=== PATIENT | male | born 1940 | race Caucasian/White ===

== ENCOUNTER → 2018-02-04 07:55 | Outpatient (CLI) | payer MEDICARE, SELFPAY ==
[2018-02-04 09:24] LABS: Cholesterol 233 mg/dL (140-199); HDL Cholesterol 66 mg/dL (40-60); LDL Cholesterol Calculated 152 mg/dL (<100); Triglycerides 77 mg/dL (35-150)
== END ==
PROVIDERS: Family Provider Internal Medicine; PCP Internal Medicine; Visit Provider Internal Medicine
DX: E78.5 Hyperlipidemia, unspecified (principal)
CPT/HCPCS: 36415; 80061

== ENCOUNTER → 2018-05-13 08:12 | Outpatient (CLI) | payer MEDICARE, SELFPAY ==
[2018-05-13 09:09] LABS: Alanine Aminotransferase 26 IU/L (21-72); Albumin 4.2 g/dL (3.5-5.0); Albumin Globulin Ratio 1.4 (1.0-2.8); Alkaline Phosphatase 86 U/L (38-126); Aspartate Aminotransferase 20 IU/L (17-59); BUN Creatinine Ratio 17.3 (6-22); Bilirubin Total 0.5 mg/dL (0.2-1.3); Blood Urea Nitrogen 19 mg/dL (9-20); Calcium 9.3 mg/dL (8.4-10.2); Carbon Dioxide 28 mmol/L (22-32); Chloride 105 mmol/L (98-107); Cholesterol 173 mg/dL (140-199); Estimated Glomerular Filt Rate > 60.0 mL/min (>60); Globulin 2.9 g/dL (1.7-4.1); Glucose 112 mg/dL (80-110); HDL Cholesterol 58 mg/dL (40-60); HEMOLYSIS < 15 (0-50); LDL Cholesterol Calculated 100 mg/dL (<100); Potassium 4.3 mmol/L (3.4-5.1); Sodium 142 mmol/L (137-145); Total Protein 7.1 g/dL (6.3-8.2); Triglycerides 73 mg/dL (35-150); Uric Acid 7.7 mg/dL (3.5-8.5)
== END ==
PROVIDERS: PCP Internal Medicine; Visit Provider Internal Medicine
DX: E78.5 Hyperlipidemia, unspecified (principal); I10 Essential (primary) hypertension
CPT/HCPCS: 36415; 80053; 80061; 84550

== ENCOUNTER → 2020-06-29 15:11 | Outpatient (CLI) | payer MEDICARE, SELFPAY ==
--- NOTE | 2020-06-29 15:13 | DI.RAD.S_ITS ---
PROCEDURE: XR CHEST 2V INDICATIONS: cough TECHNIQUE: 2 views of the chest were acquired. COMPARISON: [facility], , CHEST 2 VIEW, 03/30/2015, 12:25. FINDINGS: Surgical changes and devices: None. Lungs and pleura: Lungs are clear. No pleural effusions or pneumothorax. Mediastinum: Mediastinal contours are normal. Heart size is normal. Bones and chest wall: No suspicious bony abnormalities. Soft tissues appear unremarkable. IMPRESSION: No source of cough is found. Dictated by: Charles Valerio M.D. on 06/29/2020 at 15:51 Approved by: Charles Valerio M.D. on 06/29/2020 at 15:55
== END ==
PROVIDERS: Family Provider Internal Medicine; PCP Internal Medicine; Referring Provider Internal Medicine; Visit Provider Internal Medicine
DX: R05 Cough (principal)
CPT/HCPCS: 71046

== ENCOUNTER → 2020-07-01 12:58 | Outpatient (CLI) | payer MEDICARE, SELFPAY ==
[2020-07-01 14:17] LABS: Alanine Aminotransferase 20 IU/L (<50); Albumin 4.3 g/dL (3.5-5.0); Albumin Globulin Ratio 1.5 (1.0-2.8); Alkaline Phosphatase 111 U/L (38-126); Aspartate Aminotransferase 22 IU/L (17-59); BUN Creatinine Ratio 16.8 (6-22); Bilirubin Total 0.8 mg/dL (0.2-1.3); Blood Urea Nitrogen 20 mg/dL (9-20); Calcium 9.8 mg/dL (8.4-10.2); Carbon Dioxide 27 mmol/L (22-32); Chloride 106 mmol/L (98-107); Cholesterol 233 mg/dL (140-199); Globulin 2.9 g/dL (1.7-4.1); Glucose 97 mg/dL (80-110); HDL Cholesterol 72 mg/dL (40-60); HEMOLYSIS < 15 (0-50); LDL Cholesterol Calculated 137 mg/dL (<100); Potassium 4.5 mmol/L (3.4-5.1); Sodium 137 mmol/L (137-145); Total Protein 7.2 g/dL (6.3-8.2); Triglycerides 122 mg/dL (35-150)
== END ==
PROVIDERS: Family Provider Internal Medicine; PCP Internal Medicine; Referring Provider Internal Medicine; Visit Provider Internal Medicine
DX: E78.5 Hyperlipidemia, unspecified (principal)
CPT/HCPCS: 36415; 80053; 80061

== ENCOUNTER → 2021-03-13 13:59 | Outpatient (CLI) | payer MEDICARE, SELFPAY | PROVIDERS: Family Provider Internal Medicine; PCP Internal Medicine; Visit Provider Physician Assistant | DX: L02.91 Cutaneous abscess, unspecified (principal) | CPT/HCPCS: 87070; 87075; 87077; 87147; 87186; 87205 ==

== ENCOUNTER 2021-05-19 12:24 | Emergency (ER) | payer MEDICARE, SELFPAY ==
[2021-05-19 12:27] VITALS: BP 197/84; PULSE 66; RESP 14; TEMP 36.9; O2SAT 100; BMI 29.0
--- NOTE | 2021-05-19 12:33 | DI.US.S_ITS ---
PROCEDURE: US PERIPH VENOUS LOW EXTREM LT INDICATIONS: EDEMA TECHNIQUE: Real-time imaging, as well as color and pulse Doppler interrogation, were performed of the lower extremity deep veins from the inguinal ligament to the popliteal fossa. COMPARISON: None. FINDINGS: The common femoral, femoral and popliteal veins are normally compressible, and free of intraluminal thrombus. Color and pulse Doppler demonstrate normal phasic intraluminal flow. There is normal augmentation response to distal compression maneuver. A relatively prominent Terry's cyst is seen that measures 5.7 x 1.2 x 2.4 cm. IMPRESSION: Negative for deep venous thrombosis. Relatively prominent Terry's cyst noted. Dictated by: Joni Araya M.D. on 05/19/2021 at 12:47 Approved by: Joni Araya M.D. on 05/19/2021 at 12:47
--- NOTE | 2021-05-19 13:08 | ED_ITS ---
HPI - Extremity Problem <David Rangel PA-C - Last Filed: 05/19/21 15:55> General Chief complaint: Extremity Problem,Nontraumatic Stated complaint: Left Leg DVT, Sent From [facility] Time Seen by Provider: 05/19/21 12:58 Source: patient Mode of arrival: Wheelchair Limitations: no limitations History of Present Illness HPI Narrative: Levi presents today with his for chief complaint of left ou ter ankle swelling and pain that started 3 days ago. He reports that he noticed some swelling 1st and then the pain started. There is now some redness on his skin in that area. He has pain with pressing on that area or with rotating his ankle. He denies any injuries, twisting his ankle, scratching his skin, fever, night sweats, chills or any other acute concerns or complaints at this time. He has past medical history of gout and states that this pain feels the same. When he last had gout he was treated the following day after his symptoms started and his pain went away within 1 day after treatment. He has not been taking any medications to help alleviate symptoms at this time. Related Data Previous Rx's Medication Instructions Recorded fluticasone propionate 50 2 spray NASAL BEDTIME #16 gram 06/29/20 mcg/actuation nasal spray,suspension simvastatin 40 mg tablet 40 mg PO QDAY #90 tab 07/20/20 colchicine 0.6 mg tablet 0.6 mg PO DAILY PRN #14 tab 05/19/21 Allergies Allergy/AdvReac Type Severity Reaction Status Date / Time No Known Drug Allergies Allergy Verified 05/19/21 12:29 Review of Systems <David Rangel PA-C - Last Filed: 05/19/21 15:55> Review of Systems Narrative: As per HPI Patient History <David Rangel PA-C - Last Filed: 05/19/21 15:55> Medical History (Updated 05/19/21 @ 14:16 by David Rangel PA-C) Abscess BPH (benign prostatic hyperplasia) Elevated prostate specific antigen (PSA) (04/24/11) Hyperlipidemia (04/24/11) 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) Social History marital status: number of children: 3 (Step children) household members: spouse lives independently: Yes caregiver/support person: No housing: house pets and animals: Yes education level: high school occupational status: other (Retired) current occupational exposures/hazards: No Previous occupational history: Worked for [employer] leisure activities: reading Smoking Status: Former smoker Tobacco: How many years used: 30 Smokeless tobacco user: other (Cigarettes) quit status: quit date established (Back in the 80's) alcohol intake: current (3 cans of beer a day (varies)) substance use type: does not use Smoking Status: Former smoker alcohol intake frequency: holidays/special occasions only Substance Use Type: does not use Exam <David Rangel PA-C - Last Filed: 05/19/21 15:55> Narrative Exam Narrative: Exam Narrative: Const General: cooperative, healthy appearing, comfortable, no acute distress, well developed and well groomed Nutritional Appearance: average body habitus Orientation: alert and oriented x3 HENMT Head: normal to inspection and atraumatic Ears: hearing grossly normal bilaterally Nose: external nose normal and nares normal Face and sinus: normal facial exam Neck Neck: normal visual inspection and supple Resp Effort & Inspection: normal respiratory effort, able to speak in complete sentences, no audible wheezes, not labored, no nasal flaring and no respiratory distress Neuro General: alert, oriented x3, gait normal, tone normal and moves all extremities Cognition: normal cognition Speech: speech normal Gait: normal gait Extremities Lower extremities exposed. No calf swelling or pedal edema. Left outer ankle is swollen and tender to the touch with mild overlying erythema. No petechiae or purpura noted. The area is only slightly warmer to the touch. He has intact range of motion of ankles and knees. No tenderness along the deep venous system with palpation. Psych Appearance: grossly normal and well kempt Mental Status: mental status grossly normal Speech and Movement: speech and movement normal Mood: congruent mood Affect: normal affect Initial Vital Signs Initial Vital Signs: Vital Signs Temperature 98.4 F 05/19/21 12:27 Pulse Rate 66 05/19/21 12:27 Respiratory Rate 14 05/19/21 12:27 Blood Pressure 197/84 H 05/19/21 12:27 Pulse Oximetry 100 05/19/21 12:27 <Rosi Greenfield MD - Last Filed: 05/21/21 02:34> Initial Vital Signs Initial Vital Signs: Vital Signs Temperature 98.4 F 05/19/21 12:27 Pulse Rate 66 05/19/21 12:27 Respiratory Rate 14 05/19/21 12:27 Blood Pressure 197/84 H 05/19/21 12:27 Pulse Oximetry 100 05/19/21 12:27 Course <David Rangel PA-C - Last Filed: 05/19/21 15:55> Orders Ordered: Discontinued Medications Ketorolac Tromethamine (Ketorolac 30 Mg/Ml Vial) 30 mg IM NOW ONE Stop: 05/19/21 14:13 Last Admin: 05/19/21 14:18 Dose: 30 mg Documented by: ATAYLOR Vital Signs Vital signs: Vital Signs - 8 hr 05/19/21 12:27 05/19/21 13:22 Temperature 98.4 F Pulse Rate 66 70 Respiratory Rate 14 16 Blood Pressure 197/84 H 165/80 H Pulse Oximetry 100 99 <Rosi Greenfield MD - Last Filed: 05/21/21 02:34> Orders Ordered: Discontinued Medications Ketorolac Tromethamine (Ketorolac 30 Mg/Ml Vial) 30 mg IM NOW ONE Stop: 05/19/21 14:13 Last Admin: 05/19/21 14:18 Dose: 30 mg Documented by: ATAYLOR Vital Signs Vital signs: Vital Signs - 8 hr 05/19/21 12:27 05/19/21 13:22 Temperature 98.4 F Pulse Rate 66 70 Respiratory Rate 14 16 Blood Pressure 197/84 H 165/80 H Pulse Oximetry 100 99 MDM - Extremity (Nontraumatic) <David Rangel PA-C - Last Filed: 05/19/21 15:55> MDM Narrative Medical decision making narrative: Differential diagnosis includes cellulitis, septic arthritis, gout. He has history of gout and reports that this pain is the same as when he had gout as last time. This is also in the same location. He denies any trauma to this area. There is slight skin erythema and mild warmth which is concerning for possible cellulitis. However, the skin is intact and there is no underlying fluctuance. I think that cellulitis is less likely at this time. He is able to rotate the ankle slightly and is afebrile. No systemic signs of infection at this time. I think that septic arthritis is less likely. We will treat for gout at this time with strict ER return precautions include spreading redness, fever, increased swelling, worsening pain, or any other new or worsening complaints. Patient verbalizes understanding and agrees to plan and has no further concerns at this time. Thank you A [id number] system was used with the dictation of this note. Please disregard any spelling or grammatical errors. 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 Please use the medication as recommended to help with your gout. If you develop fever, spreading redness, increased swelling, worsening pain in please return for re-evaluation. Thank you David Rangel PA-C Prescriptions: New colchicine 0.6 mg tablet 0.6 mg PO DAILY PRN (Reason: gout pain) Qty: 14 RF: 0 No Action fluticasone propionate 50 mcg/actuation spray,suspension 2 spray NASAL BEDTIME Qty: 16 RF: 0 simvastatin 40 mg tablet 40 mg PO QDAY Qty: 90 RF: 4 Referrals: Levi Conroy MD [Primary Care Provider] - <Rosi Greenfield MD - Last Filed: 05/21/21 02:34> Cosign ED Attending Cosignature Attestation: I was immediately available in the department for consultation throughout this patient's visit. I agree with documentation as above. Rosi Greenfield MD
[2021-05-19 13:22] VITALS: BP 165/80; PULSE 70; RESP 16; O2SAT 99
[2021-05-19] MEDS: KETOROLAC 30 MG/ML VIAL IM (14:18)
== END 2021-05-19 14:27 | disposition home or self-care (01) ==
PROVIDERS: Emergency Provider Physician Assistant; Family Provider Internal Medicine; PCP Internal Medicine
DX: M13.172 Monoarthritis, not elsewhere classified, left ankle and foot (principal)
CPT/HCPCS: 93971; 96372; 99283; J1885

== ENCOUNTER → 2021-07-07 10:15 | Outpatient (CLI) | payer MEDICARE, SELFPAY ==
[2021-07-07 11:51] LABS: Alanine Aminotransferase 19 IU/L (<50); Albumin 4.2 g/dL (3.5-5.0); Albumin Globulin Ratio 1.6 (1.0-2.8); Alkaline Phosphatase 97 U/L (38-126); Aspartate Aminotransferase 20 IU/L (17-59); BUN Creatinine Ratio 10.9 (6-22); Bilirubin Total 0.7 mg/dL (0.2-1.3); Blood Urea Nitrogen 14 mg/dL (9-20); Calcium 9.9 mg/dL (8.4-10.2); Carbon Dioxide 29 mmol/L (22-32); Chloride 103 mmol/L (98-107); Cholesterol 168 mg/dL (140-199); Estimated Glomerular Filt Rate 54.1 mL/min (>60); Globulin 2.7 g/dL (1.7-4.1); Glucose 107 mg/dL (80-110); HDL Cholesterol 66 mg/dL (40-60); HEMOLYSIS < 15 (0-50); LDL Cholesterol Calculated 83 mg/dL (<100); Potassium 4.4 mmol/L (3.4-5.1); Sodium 139 mmol/L (137-145); Total Protein 6.9 g/dL (6.3-8.2); Triglycerides 94 mg/dL (35-150)
== END ==
PROVIDERS: Family Provider Internal Medicine; PCP Internal Medicine; Referring Provider Internal Medicine; Visit Provider Internal Medicine
DX: E78.2 Mixed hyperlipidemia (principal)
CPT/HCPCS: 36415; 80053; 80061

== ENCOUNTER → 2022-09-18 10:09 | Outpatient (CLI) | payer MEDICARE, SELFPAY ==
[2022-09-18 11:14] LABS: Alanine Aminotransferase 21 IU/L (<50); Albumin 4.3 g/dL (3.5-5.0); Albumin Globulin Ratio 1.3 (1.0-2.8); Alkaline Phosphatase 122 U/L (38-126); Aspartate Aminotransferase 23 IU/L (17-59); Bilirubin Total 0.6 mg/dL (0.2-1.3); Blood Urea Nitrogen 19 mg/dL (9-20); Calcium 9.3 mg/dL (8.4-10.2); Carbon Dioxide 27 mmol/L (22-32); Chloride 103 mmol/L (98-107); Cholesterol 185 mg/dL (140-199); Estimated Glomerular Filt Rate > 60 mL/min (>60); Globulin 3.4 g/dL (1.7-4.1); Glucose 105 mg/dL (80-110); HDL Cholesterol 77 mg/dL (40-60); HEMOLYSIS < 15 (0-50); LDL Cholesterol Calculated 98 mg/dL (<100); Potassium 4.5 mmol/L (3.4-5.1); Sodium 139 mmol/L (137-145); Total Protein 7.7 g/dL (6.3-8.2); Triglycerides 52 mg/dL (35-150); Uric Acid 7.8 mg/dL (3.5-8.5)
== END ==
PROVIDERS: Family Provider Internal Medicine; PCP Internal Medicine; Referring Provider Internal Medicine; Visit Provider Internal Medicine
DX: E78.2 Mixed hyperlipidemia (principal); M1A.9XX0 Chronic gout, unspecified, without tophus (tophi)
CPT/HCPCS: 36415; 80053; 80061; 84550

== ENCOUNTER → 2024-02-07 09:28 | Outpatient (CLI) | payer MEDICARE, SELFPAY ==
[2024-02-07 09:53] LABS: Add Manual Diff / Slide Review NO; Basophils Absolute Auto 100 /uL (0-100); Basophils Percent Auto 1.1 % (0-2); Eosinophils Absolute Auto 300 /uL (0-450); Hematocrit 42.5 % (41-53); Hemoglobin 14.4 g/dL (13.5-17.5); Lymphocytes Absolute Auto 1500 /uL (1100-4500); Lymphocytes Percent Auto 18.1 % (25-40); Mean Corpuscular HGB Conc 33.8 % (30-36); Mean Corpuscular Hemoglobin 30.8 PG (26-34); Monocytes Absolute Auto 600 /uL (0-900); Monocytes Percent Auto 7.6 % (3-14); Neutrophils Absolute Auto 5600 /uL (1500-7000); Neutrophils Percent Auto 69.2 % (50-75); Platelet Count 311 X10^3/uL (150-400); Red Blood Cell Count 4.68 X10^6/uL (4.5-5.9); Red Cell Distribution Width 13.5 % (11.6-14.8)
[2024-02-07 10:46] LABS: Alanine Aminotransferase 17 IU/L (<50); Albumin 4.3 g/dL (3.5-5.0); Albumin Globulin Ratio 1.7 (1.0-2.8); Alkaline Phosphatase 122 U/L (38-126); Aspartate Aminotransferase 23 IU/L (17-59); BUN Creatinine Ratio 16.9 (6-22); Bilirubin Total 0.5 mg/dL (0.2-1.3); Blood Urea Nitrogen 20 mg/dL (9-20); Calcium 9.4 mg/dL (8.4-10.2); Carbon Dioxide 26 mmol/L (22-32); Chloride 109 mmol/L (98-107); Cholesterol 166 mg/dL (140-199); Estimated Glomerular Filt Rate > 60 mL/min (>60); Globulin 2.5 g/dL (1.7-4.1); Glucose 114 mg/dL (80-110); HDL Cholesterol 90 mg/dL (40-60); HEMOLYSIS < 15 (0-50); LDL Cholesterol Calculated 65 mg/dL (<100); Potassium 4.5 mmol/L (3.4-5.1); Sodium 140 mmol/L (137-145); Total Protein 6.8 g/dL (6.3-8.2); Triglycerides 55 mg/dL (35-150); Uric Acid 6.7 mg/dL (3.5-8.5)
== END ==
PROVIDERS: Family Provider Internal Medicine; PCP Internal Medicine; Referring Provider Internal Medicine; Visit Provider Internal Medicine
DX: E78.5 Hyperlipidemia, unspecified (principal); M1A.9XX0 Chronic gout, unspecified, without tophus (tophi); D64.9 Anemia, unspecified
CPT/HCPCS: 36415; 80053; 80061; 84550; 85025

== ENCOUNTER → 2024-11-18 13:05 | Outpatient (CLI) | payer MEDICARE, SELFPAY ==
[2024-11-18 13:22] LABS: Add Manual Diff / Slide Review NO; Basophils Absolute Auto 100 /uL (0-100); Basophils Percent Auto 0.8 % (0-2); Eosinophils Absolute Auto 200 /uL (0-450); Eosinophils Percent Auto 2.3 % (2-4); Hematocrit 41.5 % (41-53); Hemoglobin 13.9 g/dL (13.5-17.5); Lymphocytes Absolute Auto 1300 /uL (1100-4500); Lymphocytes Percent Auto 17.4 % (25-40); Mean Corpuscular HGB Conc 33.6 % (30-36); Mean Corpuscular Hemoglobin 30.7 PG (26-34); Mean Corpuscular Volume 91.3 fL (80-100); Monocytes Absolute Auto 600 /uL (0-900); Monocytes Percent Auto 8.3 % (3-14); Neutrophils Absolute Auto 5500 /uL (1500-7000); Neutrophils Percent Auto 71.2 % (50-75); Platelet Count 305 X10^3/uL (150-400); Red Blood Cell Count 4.54 X10^6/uL (4.5-5.9); Red Cell Distribution Width 13.4 % (11.6-14.8); White Blood Cell Count 7.7 X10^3/uL (4.5-11.0)
[2024-11-18 13:44] LABS: Alanine Aminotransferase 22 IU/L (<50); Albumin 4.5 g/dL (3.5-5.0); Albumin Globulin Ratio 1.7 (1.0-2.8); Alkaline Phosphatase 131 U/L (38-126); Aspartate Aminotransferase 34 IU/L (17-59); BUN Creatinine Ratio 17.8 (6-22); Bilirubin Total 1.1 mg/dL (0.2-1.3); Blood Urea Nitrogen 23 mg/dL (9-20); Calcium 9.7 mg/dL (8.4-10.2); Carbon Dioxide 21 mmol/L (22-32); Chloride 108 mmol/L (98-107); Cholesterol 172 mg/dL (140-199); Estimated Glomerular Filt Rate 55 mL/min (>60); Globulin 2.7 g/dL (1.7-4.1); Glucose 99 mg/dL (80-110); HDL Cholesterol 82 mg/dL (40-60); HEMOLYSIS < 15 (0-50); LDL Cholesterol Calculated 78 mg/dL (<100); Potassium 4.4 mmol/L (3.4-5.1); Sodium 140 mmol/L (137-145); Total Protein 7.2 g/dL (6.3-8.2); Triglycerides 58 mg/dL (35-150)
== END ==
PROVIDERS: Family Provider Internal Medicine; PCP Internal Medicine; Referring Provider Internal Medicine; Visit Provider Internal Medicine
DX: E78.2 Mixed hyperlipidemia (principal); C67.9 Malignant neoplasm of bladder, unspecified; D64.9 Anemia, unspecified
CPT/HCPCS: 36415; 80053; 80061; 85025

== ENCOUNTER → 2025-01-15 10:14 | Outpatient (CLI) | payer MEDICARE, SELFPAY ==
--- NOTE | 2025-01-15 | DI.CT.S_ITS ---
PROCEDURE: CT SOFT TISSUE NECK W CON INDICATIONS: SCC TECHNIQUE: After the administration of intravenous contrast, 3.0 mm axial sections acquired from the sella to the aortic arch. Additional oblique axial 3.0 mm sections acquired through the pharynx. 3 mm thick coronal and sagittal reformats were generated. For radiation dose reduction, the following was used: automated exposure control. COMPARISON: None. FINDINGS: Image quality: There is streak artifact seen through the level of the shoulders. Lymph nodes: No enlarged lymph nodes seen throughout the neck. However, borderline prominent submandibular lymph nodes are seen, measuring up to 8 x 7 mm, as on series 2, image 57. Vessels: Visualized vasculature appears patent. Neck spaces: Asymmetric soft tissue thickening can be seen within the right narrowing is, as on series 2, image 31 and on series 5, image 14. The oropharynx, nasopharynx, and pharynx demonstrate no mucosal lesions. The vocal cords, false vocal cords, pyriform sinuses, epiglottis, vallecula, and tongue base all appear normal. Glands: The parotid and submandibular glands appear normal. Thyroid gland demonstrates no significant abnormality. Miscellaneous: Visualized brain and orbits appear normal. Lung apices appear clear. Superficial soft tissues appear normal. Bones: No suspicious bony lesions. Visualized sinuses and mastoids appear unremarkable. At least moderate cervical spine degenerative change can be seen. IMPRESSION: Abnormal soft tissue thickening seen involving the right nares, which is consistent with the known clinical history. No frankly enlarged cervical lymph nodes are seen, although borderline prominent submandibular lymph nodes are seen. Dictated by: Joni Araya M.D. on 01/15/2025 at 17:02 Approved by: Joni Araya M.D. on 01/15/2025 at 17:04
[2025-01-15 10:55] LABS: Estimated Glomerular Filt Rate 55 mL/min (>60)
== END ==
PROVIDERS: Family Provider Internal Medicine; PCP Internal Medicine; Referring Provider Internal Medicine; Visit Provider Internal Medicine
DX: Z01.812 Encounter for preprocedural laboratory examination (principal); C44.320 Squamous cell carcinoma of skin of unspecified parts of face; C44.321 Squamous cell carcinoma of skin of nose
CPT/HCPCS: 36415; 70491; 82565; Q9967

== ENCOUNTER → 2025-06-18 09:21 | Outpatient (CLI) | payer MEDICARE, SELFPAY ==
--- NOTE | 2025-06-18 09:22 | DI.RAD.S_ITS ---
PROCEDURE: XR CERVICAL SPINE 4V OR 5V INDICATIONS: cervical radiculopathy TECHNIQUE: Five views of the cervical spine acquired. COMPARISON: None. FINDINGS: Cervical spine curvature and alignment: Normal. Bones: There are no osseous abnormalities. Disc spaces: Moderate C3-4 through C7-T1 degenerative disc and facet disease . Intervertebral foramen: Moderate narrowing of the right C2-3 bilateral C3-4 C4- 5 C5-6 IV foramen due to degenerative spurs Soft tissues: No soft tissue swelling, calcification or mass. IMPRESSION: Degeneration Dictated by: Levi Cardoso M.D. on 06/19/2025 at 11:36 Approved by: Levi Cardoso M.D. on 06/19/2025 at 11:37
== END ==
PROVIDERS: Family Provider Internal Medicine; PCP Internal Medicine; Referring Provider Internal Medicine; Visit Provider Internal Medicine
DX: M50.11 Cervical disc disorder with radiculopathy, high cervical region (principal); M47.22 Other spondylosis with radiculopathy, cervical region; M48.02 Spinal stenosis, cervical region
CPT/HCPCS: 72050